=== PATIENT | female | born 1990 | race African-American/Black ===

== ENCOUNTER 2018-05-20 08:00 | Emergency (ER) | payer BC, OTHER ==
[~2018-05-20] VITALS: Ht 154.9 cm; Wt 68.0 kg
--- NOTE | ~2018-05-20 | EKG ---
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1990 Requested By: Caio Dai Order Number: [id number] MD: Rigoberto Harmon Measurements Intervals [place] Rate: 81 P: 67 [place]: 152 QRS: 12 QRSD: 81 T: 19 QT: 374 QTc: 434 Interpretive Statements Sinus rhythm No significant abnormality Baseline wander in lead(s) V4 No previous ECG available for comparison Electronically Signed On 05-21-2018 7:57:44 CDT by Rigoberto Harmon [email or web address] <ELECTRONICALLY SIGNED> By: Rigoberto Harmon MD, [facility] 05/21/18 0757 0808 7 Rigoberto Harmon MD, [facility] /EPI
[~2018-05-20 08:00] MED LIST: COLACE100 MG PO; FEOSOL325 M1 PO; IBUPROFEN 600600 M1 PO; LABETALOL HCL100 MG PO; NORCO 5-325 TA1 EACH PO
[2018-05-20 09:08] LABS: ABSOLUTE NEUTROPHILS 2.6 thou/uL (1.4-8.2); BASOPHILS 0.5 % (0.0-2.0); EOSINOPHILS 0.8 % (0.0-3.0); HEMATOCRIT 39.3 % (37.0-47.0); HEMOGLOBIN 13.5 gm/dL (12.0-15.0); LYMPHOCYTES 45.8 % (24.0-44.0); MCH 33.3 pg (26.0-34.0); MCHC 34.4 g/dL (28.0-37.0); MCV 96.9 fL (80.0-100.0); MONOCYTES 6.1 % (1.0-8.0); PLATELET COUNT 327 thou/uL (150-400); POLYS 46.8 % (36.0-66.0); RBC 4.05 mil/uL (4.20-5.00); RDW 12.7 % (10.5-14.5); WBC 5.5 thou/uL (4.0-11.0)
[2018-05-20 09:11] LABS: ANION GAP 5 mmol/L (7-16); BUN 14 mg/dL (7-18); CALCIUM 8.8 mg/dL (8.5-10.1); CHLORIDE 107 mmol/L (98-107); CO2 26 mmol/L (21-32); CREATININE 0.8 mg/dL (0.6-1.0); GLUCOSE 111 mg/dL (74-106); POTASSIUM 3.8 mmol/L (3.5-5.1); SODIUM 138 mmol/L (136-145)
[2018-05-20 09:20] LABS: TROPONIN-I <0.06 ng/mL (<0.06)
[2018-05-20] MEDS ORDERED: LABETALOL HCL100 MG PO ×2 (10:49→12:13)
[2018-05-20] MEDS ORDERED: LAMICTAL100 MG PO (10:49)
[2018-05-20] MEDS ORDERED: NORVASC5 MG PO ×2 (11:31→12:13)
[2018-05-20 12:24] VITALS: BP 194/104
== END 2018-05-20 12:24 | disposition home or self-care (01) ==
LOC: ER 08:00
PROVIDERS: Physician Assistant
DX: I10 Essential (primary) hypertension (principal); F17.210 Nicotine dependence, cigarettes, uncomplicated

== ENCOUNTER → 2018-08-25 | Outpatient (CLI) | payer BC, OTHER ==
[~2018-08-25] MED LIST changes: +LAMICTAL100 MG PO; +NORVASC5 MG PO
== END ==
LOC: MRI 12:28
DX: M54.16 Radiculopathy, lumbar region (principal)

== ENCOUNTER 2022-01-03 13:01 | Inpatient (IN) | payer BC ==
[~2022-01-03] VITALS: Ht 154.9 cm; Wt 65.8 kg
[2022-01-03] VITALS (14 sets, daily range): BP systolic 112–207; BP diastolic 73–140
[2022-01-03 13:36] LABS: ABSOLUTE NEUTROPHILS 2.6 thou/uL (1.4-8.2); BASOPHILS 1.2 % (0.0-2.0); EOSINOPHILS 2.6 % (0.0-3.0); HEMATOCRIT 42.8 % (37.0-47.0); HEMOGLOBIN 14.7 gm/dL (12.0-15.0); LYMPHOCYTES 36.7 % (24.0-44.0); MCH 33.2 pg (26.0-34.0); MCHC 34.4 g/dL (28.0-37.0); MCV 96.3 fL (80.0-100.0); MONOCYTES 8.9 % (1.0-8.0); PLATELET COUNT 352 thou/uL (150-400); POLYS 50.6 % (36.0-66.0); RBC 4.44 mil/uL (4.20-5.00); RDW 12.9 % (10.5-14.5); WBC 5.1 thou/uL (4.0-11.0)
[2022-01-03 13:44] LABS: CALCIUM 9.1 mg/dL (8.5-10.1); CREATININE 0.9 mg/dL (0.6-1.0); POTASSIUM 3.5 mmol/L (3.5-5.1)
[2022-01-03 13:55] LABS: ALBUMIN 3.7 g/dL (3.4-5.0); TOTAL BILIRUBIN 0.4 mg/dL (0.2-1.0); TOTAL PROTEIN 7.7 g/dL (6.4-8.2)
[2022-01-03 14:55] LABS: URINE BILIRUBIN NEGATIVE (Negative); URINE BLOOD NEGATIVE (Negative); URINE CLARITY SL CLOUDY; URINE COLOR YELLOW; URINE GLUCOSE-RANDOM* NEGATIVE (Negative); URINE KETONES NEGATIVE (Negative); URINE LEUKOCYTES-REFLEX TRACE (Negative); URINE NITRITE-REFLEX NEGATIVE (Negative); URINE PROTEIN (DIPSTICK) TRACE (Negative); URINE SPECIFIC GRAVITY 1.025 (1.005-1.035); URINE UROBILINOGEN 0.2 E.U./dl (0.2-1.0)
[2022-01-03 15:04] LABS: AMP/METHAMP Negative (Negative); BARBITURATES Negative (Negative); BENZODIAZEPINES Negative (Negative); COCAINE Negative (Negative); METHADONE Negative (Negative); OPIATES Negative (Negative); PCP Negative (Negative)
--- NOTE | 2022-01-03 15:36 | EKG ---
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
--- NOTE | 2022-01-03 17:44 | NUR ---
PT ARRIVED TO THE UNIT AT 1700 PT BELONGINGS INCLUDED A JACKET, SHOES, PURSE, CLOTHES AND HER PHONE PT IS PLEASANT, HOWEVER SHE DOES NOT UNDERSTAND THE SERIOUSNESS OF HTN AND NEEDS FURTHER EDUCATION AND POSSIBLY HELP OBTAINING HER MEDICATION.
--- NOTE | 2022-01-03 22:05 | NUR ---
2100: pt became restless, did not want to talk to the nurse. pt wanted to talk to the provider only. pt was c/o headache. prn acetamoniphen offered but pt refused. pt threatened to leave the facility. auditor in charge was notified of this development. MILITARY EXCHANGE WIRELESS MANAGER stopped by the unit at 2130 and spoke to the pt. pt agreed to stay until am for her stress test.
[2022-01-04] VITALS (48 sets, daily range): BP systolic 132–179; BP diastolic 85–124
--- NOTE | 2022-01-04 06:52 | NUR ---
onetime sumatriptan adm for c/o headache
[2022-01-04] MEDS ORDERED: LOSARTAN-HCTZ1 EAC3 PO (08:27)
[2022-01-04] MEDS ORDERED: NORVASC10 MG PO (08:27)
[2022-01-04 10:08] LABS: ANTI-DNA SCREEN <1 IU/mL (0-9); ANTI-RNP 0.3 AI (0.0-0.9)
[2022-01-04] MEDS ORDERED: NIFEDIPINE ER30 M1 PO (10:09)
[2022-01-04] MEDS ORDERED: BENICAR40 MG PO (10:09)
--- NOTE | 2022-01-04 12:05 | EXE ---
[facility] [place] [place] [address] STRESS ECHOCARDIOGRAM Name: DELIO MORILLO Room #: 243-P ADM IN M.R.#: [id number] Admission: 01/03/22 Attend Phys: Milan Gonzalez Discharge: Date of : [birth year] Report #: [id number] THIS REPORT FOR: cc: Stephanie Chaparro Beth RNP Lammoglia, Francisco J. MD ~ APPROVED REPORT Study performed: 01/04/2022 10:17:43 Exam: Stress Echocardiogram Indication: Hypertension Patient Location: In-Patient Stress Nurse: Angelika Plummer RN Room #: 243 Status: routine Ht: 5 ft 0 in HR: 92 bpm BP: 142/98 mmHg Rhythm: NSR Medical History Medical History: HTN Cardiac Risk Factors: HTN Exercise History: Physically active Procedure The patient underwent an Exercise Stress Test using the Maykel Protocol. Blood pressure, heart rate, and EKG were monitored. An Echocardiogram was performed by crane service technician in four stages in quad fashion. At peak stress, four selected images were obtained and placed side by side with resting images for comparison. Stress Test Details Stress Test: Exercise stress testing was performed using a Maykel protocol. HR Resting HR: 92 bpm Max Heart Rate (APMHR): 189 bpm Max HR Achieved: 164 bpm Target HR (85% APMHR): 160 bpm % of APMHR: 86 Recovery HR: 102 bpm HR response to stress: Normal HR response to stress BP [facility] [address] [place] [address] STRESS ECHOCARDIOGRAM Name: DELIO MORILLO Room #: 243-P ADM IN .R.#: [id number] Admission: 01/03/22 Attend Phys: Milan Mayfield Discharge: Date of : [birth year] Report #: [id number] Resting BP: 142/98 mmHg Max BP: 212/126 mmHg Recovery BP: 158/102 mmHg BP response to stress: Normal blood pressure response to stress. ECG Clinical Reason for Termination: Elevated diastolic blood pressure Exercise duration: 4 min 40 sec Highest Stage Achieved: Stage 2: 2.5 mph at 12% grade. Exercise capacity: 7 METs Overall Exercise Capacity for Age: Average Stress ECG Conclusion 1. Subjectively negative for ischemia 2. Electrocardiographically negative for ischemia 3. Hypertensive blood pressure response Pre-Stress Echo The resting Echocardiogram showed normal left ventricular contractility with an estimated Ejection Fraction of about >55%. The resting echocardiogram demonstrated normal wall motion in all wall segments. Post-Stress Echo The stress Echocardiogram showed normal left ventricular contractility with an estimated Ejection Fraction of about >70%. Compared to rest, there were no stress-induced wall motion abnormalities. Conclusion Clinical Response: Non-ischemic Exercise Capacity: Average Stress ECG Response: Non-ischemic Stress Echo Images: Non-ischemic 1. Low ischemic risk study at this heart rate and double product 2. Severe concentric left ventricular hypertrophy noted No prior study available for comparison. Other Information Study Quality: Good <Conclusion> [facility] [address] [place] [address] STRESS ECHOCARDIOGRAM Name: DELIO MORILLO Room #: 243-P ADM IN M.R.#: [id number] Admission: 01/03/22 Attend Phys: Milna Mayfield Discharge: Date of : 89 Report #: [id number] 1. Low ischemic risk study at this heart rate and double product 2. Severe concentric left ventricular hypertrophy noted <ELECTRONICALLY SIGNED> By: Ramsey Ness MD 01/04/22 1205 1205 120 Ramsey Ness MD /INF
--- NOTE | 2022-01-04 13:44 | NUR ---
LIANE CALLED ABOUT PATIENT LEAVING AMA. HE SAID THAT THE RX WERE CALLED IN TO THE PHARMACY.
--- NOTE | 2022-01-04 14:01 | NUR ---
31-year-old female, came to the ED with complaints of chest pain and high blood pressure at home. history of HTN, initially dx when she was 19. She is a smoker, about 1/2 pack/day. She also smokes marijuana. She takes shots of alcohol weekly. Cardiology consulted. family history significant for premature cardiovascular disease in her mother. She is adopted, reports her mother of an NV at age 45, though had prior CAD before that. She was seen in the clinic setting by Dr. Ness in 2019, though has been unable to complete any testing. Patient has not had any of her medication refilled since May 2021. Patient was wanting to leave AMA but agreed to stay for the stress test today. Patient had light off and curtain pulled because of her head. Cm called contact listed [place] , no answer. Discussed during los with the attending physician. Anticipated dc today after test, no needs. Patient has insurance. Will cont. following as needed.
--- NOTE | 2022-01-04 14:26 | NUR ---
PT WANT TO GO AMA. PT C/O OF A HEADACHE DIULADID GIVEN PER MD ORDER. PT HAD GOOD RELIEF. 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 DISCUSS THIS WITH MD ROB AND HE STATED HE CALLED IN PT PRESCRIPTIONS AND PT WILL GO HOME AMA. DISCUSS RISK OF DISCHARGE AMA. PT STILL WANT TO GO HOME IV REMOVED AND NOTIFIED CHARGE NURSE AND NURSING LAST SORTER.
== END 2022-01-04 15:30 | disposition left against medical advice (07) | DRG 305 ==
LOC: ER 13:01 → ICU 15:27 → EROBS 15:27 → ICU 16:42
PROVIDERS: Physician Assistant; ADMIT Hospitalist; ATTEND Hospitalist
DX: I16.0 Hypertensive urgency (principal); J81.1 Chronic pulmonary edema; Z20.822 Contact with and (suspected) exposure to COVID-19; R51.9 Headache, unspecified; R07.89 Other chest pain; F41.9 Anxiety disorder, unspecified; F31.9 Bipolar disorder, unspecified; F12.90 Cannabis use, unspecified, uncomplicated; R80.9 Proteinuria, unspecified; I10 Essential (primary) hypertension; F17.210 Nicotine dependence, cigarettes, uncomplicated; Z79.899 Other long term (current) drug therapy; Z83.3 Family history of diabetes mellitus; Z82.49 Family history of ischemic heart disease and other diseases of the circulatory system; Z71.6 Tobacco abuse counseling; Z91.19 Patient's noncompliance with other medical treatment and regimen
CPT/HCPCS: 10078